=== PATIENT | female | born 1930 | race Caucasian/White ===

== ENCOUNTER → 2019-10-30 | Outpatient (CLI) | payer MEDICARE, BC ==
--- NOTE | 2019-10-30 18:16 | RAD ---
Right ankle 3 views. HISTORY: Right ankle bruising and swelling 3 views were taken of the right ankle. There is not evidence of an acute fracture or osseous abnormality. IMPRESSION: 1. No fracture noted at the right ankle. Electronically signed by: Vahe Lira MD (10/30/2019 6:13 PM) [facility]
== END | disposition home or self-care (01) ==
LOC: DXRAD 17:36
PROVIDERS: ATTEND Specialist
DX: M25.571 Pain in right ankle and joints of right foot (principal)
CPT/HCPCS: 73610

== ENCOUNTER → 2020-01-15 | Outpatient (CLI) | payer MEDICARE, BC ==
[~2020-01-15] MED LIST: AMIO200T4 PO; APIX5TAB3 PO; ASPI81TA59 PO; ATOR20TA58 PO; CAND4TAB7 PO; CITA10TA8 PO; DEXL60CA2 PO; DIAZ2TAB PO; DICY20TA3 PO; FURO20TA3 PO; HYOS0.1278 SL; IPRA30SP NS; LEVO88TA2 PO; LINA145C PO; LUTE1CAP5 PO; MECL-75 PO; METO25TA2 PO; MULT-245 PO; NITR0.4T24 SL; PANT40TA3 PO; POTA10TA32 PO; PROP10TA PO; RIFA550T4 PO; TIZA4TAB2 PO; TRAM50TA PO
== END | disposition home or self-care (01) ==
LOC: LAB 10:43
PROVIDERS: ATTEND Nurse Anesthetist, Certified Registered
DX: Z20.828 Contact with and (suspected) exposure to other viral communicable diseases (principal)
CPT/HCPCS: U0003-CS

== ENCOUNTER → 2020-01-19 | Day surgery (SDC) | payer MEDICARE, BC ==
[~2020-01-19] MED LIST changes: +IPRATRPIUM/ALBUTEROL 0.5/2.5MG 3 ML NEBU. NEB PRN; +IV RINGERS SOLUTION,LACTATED 1,000 ML IV SCH; +MIDAZOLAM HCL PF 2 MG/2 ML VIAL. IV ONE
[2020-01-19 07:44] VITALS: BP 144/64
--- NOTE | 2020-01-20 15:08 | PATHOLOGY ---
[facility] Accession Number: [id number] . 01 Material submitted: . stomach - GASTRIC BIOPSY . 02 Diagnosis: Gastric biopsy: - Chronic gastritis, mild. (JPM:fish cleaner; 01/20/2020) R 01/20/2020 1016 Local . 02 Comment: Sections of the gastric biopsy reveal gastric antral mucosa showing congestion and mild chronic inflammation. A properly controlled immunoperoxidase stain for Helicobacter is negative for Helicobacter organisms. (JPM:jennifer; 01/20/2020) . Special stain performed: Immunoperoxidase stain for Helicobacter on A1 . 02 Electronically signed: . Earl Alegria MD, Pathologist NPI- [id number] . 01 Gross description: . The specimen is received in formalin, labeled "Kenzie Delgado, gastric biopsy". Received is a segment of pale moreno soft tissue measuring 0.4 cm in maximum dimensions. The specimen is submitted entirely in cassette A1. ([facility]; 01/19/2020) QA/QA 01/19/2020 1822 Local . 02 Pathologist provided ICD-10: K29.50 . 02 CPT . 037809, [id number] Specimen Comment: A courtesy copy of this report has been sent to [phone], [phone] Specimen Comment: [id number] Specimen Comment: Report sent to / DR ALVARADO Performed at: 01 [facility] [address] [facility], [place] [id number] MD Bryce Baker MD Phone: [phone] Performed at: 02 [facility] [address], [place] [id number] MD Earl Alegria MD Phone: [phone]
== END | disposition home or self-care (01) ==
LOC: SURG 06:06
PROVIDERS: ATTEND Emergency Medicine
DX: K29.50 Unspecified chronic gastritis without bleeding (principal); K22.2 Esophageal obstruction; K44.9 Diaphragmatic hernia without obstruction or gangrene; Z88.0 Allergy status to penicillin; Z88.5 Allergy status to narcotic agent; Z88.8 Allergy status to other drugs, medicaments and biological substances; Z87.891 Personal history of nicotine dependence; Z79.82 Long term (current) use of aspirin; Z79.899 Other long term (current) drug therapy
CPT/HCPCS: 43239; 43450; J2704; J7120